=== PATIENT | female | born 1950 | race Caucasian/White ===

== ENCOUNTER 2016-05-28 23:55 | Emergency (ER) | payer MEDICARE, OTHER ==
--- NOTE | 2016-05-29 00:30 | ERPHSYRPT ---
- History of Present Illness Time Seen by Provider: 05/29/16 00:27 Source: patient Exam Limitations: no limitations Patient Subjective Stated Complaint: pt states she accidentally drank some oxyclean that was put in her water bottle. sttes she took one big drink and was able to spit some of it out Triage Nursing Assessment: pt alert and oriented, asnwers questions approp. pt ambulatory with steady gait noted. skin pink warm and dry. respirations nonlabored with lungs cta. pt denies burning in mouth or throat at this time. states she did have some immediately after drinking. Physician History: pt states she accidentally drank some oxyclean that was put in her water bottle. sttes she took one big drink and was able to spit some of it out. no symptoms Timing/Duration: today Associated Symptoms: denies symptoms Allergies/Adverse Reactions: hydroxyzine Allergy (Severe, Verified 05/29/16 00:25) Rash cefaclor [From Ceclor] Adverse Reaction (Intermediate, Verified 05/29/16 00:25) Vomiting hydrocodone bitartrate [From Lortab] Adverse Reaction (Intermediate, Verified 00:25) Vomiting ibuprofen [From Vicoprofen] Adverse Reaction (Intermediate, Verified 05/29/16 00 :25) Vomiting Home Medications: Calcium Carb/Vit D3/Minerals [Calcium 600+Minerals Tablet] 1 tab PO BID [History] Citalopram Hydrobromide 20 mg* [ceLEXa 20 MG] 1 tab PO DAILY 01/18/13 [ History] Insulin Pump Controller [Snap Insulin Pump Controller] 0 unit SQ UD 01/18/13 [ History] PANTOPRAZOLE 40 mg Tablet [Protonix 40MG Tablet] 1 tab PO DAILY 01/18/13 [ History] Simvastatin 10 mg [Zocor 10MG] 1 tab PO HS 01/18/13 [History] Carvedilol 3.125 mg [Coreg 3.125 MG] 3.125 mg PO BID 04/29/15 [History] Aspirin [[place] Aspirin] 81 mg PO DAILY 06/02/15 [History] Dextroamphetamine/Amphetamine [Adderall 20 mg Tablet] 20 mg PO DAILY 06/02/15 [ History] Lisinopril 5 mg [Zestril 5 MG] 5 mg PO DAILY 06/02/15 [History] Hx Tetanus, Diphtheria Vaccination/Date Given: Yes Hx Influenza Vaccination/Date Given: Yes Hx Pneumococcal Vaccination/Date Given: Yes Immunizations Up to Date: Yes - Review of Systems Constitutional: No Fever, No Chills Eyes: No Symptoms Ears, Nose, & Throat: No Symptoms Respiratory: No Cough, No Dyspnea Cardiac: No Chest Pain, No Edema, No Syncope Abdominal/Gastrointestinal: No Abdominal Pain, No Nausea, No Vomiting, No Diarrhea Genitourinary Symptoms: No Dysuria Musculoskeletal: No Back Pain, No Neck Pain Skin: No Rash Neurological: No Dizziness, No Focal Weakness, No Sensory Changes Psychological: No Symptoms Endocrine: No Symptoms All Other Systems: Reviewed and Negative - Past Medical History Pertinent Past Medical History: Yes Neurological History: No Pertinent History ENT History: Cataracts, Other Cardiac History: Congenital Heart Disease, Coronary Artery Disease, Hypertension , Myocardial Infarction ([place]) Respiratory History: Pneumonia Endocrine Medical History: Diabetes Type I Musculoskeletal History: Fractures, Osteoporosis GI Medical History: Diverticulosis, Esophageal Disorder, GERD, Hemorrhoids History: No Pertinent History Psycho-Social History: Depression Female Reproductive Disorders: Other Other Medical History: states "see Dr Roth once a year","they say I had a heart attack about 12 yrs ago"states "EKG might have showed something yrs ago" MRSA - Past Surgical History Past Surgical History: Yes Neuro Surgical History: No Pertinent History Cardiac: No Pertinent History Respiratory: No Pertinent History Gastrointestinal: No Pertinent History Genitourinary: No Pertinent History Musculoskeletal: Orthopedic Surgery Female Surgical History: Tubal Ligation, Other Other Surgical History: zena IOL with lens implant,,right hand surgery twice for trigger finger,Jan 2013 right hip and leg surgery-states caleb to femur. - Social History Smoking Status: Never smoker Exposure to second hand smoke: Yes Drug Use: none Patient Lives Alone: No - Female History Hx Last Menstrual Period: post Hx Now: No - Nursing Vital Signs Nursing Vital Signs: Initial Vital Signs Temperature 98.0 F Temperature Source Oral Pulse Rate 77 Respiratory Rate 18 Blood Pressure [Right Arm] 181/78 Pain Intensity 0 - Physical Exam General Appearance: no apparent distress, alert Eye Exam: PERRL/EOMI, eyes nml inspection Ears, Nose, Throat Exam: normal ENT inspection, TMs normal, pharynx normal, moist mucous membranes Neck Exam: normal inspection, non-tender, supple, full range of motion Respiratory Exam: normal breath sounds, lungs clear, No respiratory distress Cardiovascular Exam: regular rate/rhythm, normal heart sounds, normal peripheral pulses Gastrointestinal/Abdomen Exam: soft, normal bowel sounds, No tenderness, No mass Back Exam: normal inspection, normal range of motion, No CVA tenderness, No vertebral tenderness Extremity Exam: normal inspection, normal range of motion, pelvis stable Neurologic Exam: alert, oriented x 3, cooperative, normal mood/affect, nml cerebellar function, nml station & gait, sensation nml, No motor deficits Skin Exam: normal color, warm, dry, No rash Lymphatic Exam: No adenopathy SpO2: 97 Oxygen Delivery: Room Air - Course Nursing assessment & vital signs reviewed: Yes - Progress Progress: improved Progress Note: 05/29/16 00:27 Poison control contacted, they advised supportive treatment. they7 reported that oxyclean is 2 % hydrogen peroxide and only supportive treatment is needed. Counseled pt/family regarding: diagnosis, need for follow-up - Departure Time of Disposition: 00:29 Departure Disposition: Home Clinical Impression: Accidental ingestion of substance Qualifiers: Encounter type: initial encounter Injury intent: accidental or unintentional Qualified Code(s): T65.91XA - Toxic effect of unspecified substance, accidental (unintentional), initial encounter Condition: Stable Critical Care Time: No Referrals: SONAM WOLFE [Primary Care Provider] - Instructions: Accidental Ingestion -- Adult
[2016-05-29] MEDS ORDERED: ZOFRAN ODT 4 MG ONE (00:34)
[2016-05-29] MEDS: ZOFRAN ODT 4 MG PO ONE ×2 (00:34→00:35)
[2016-05-29 01:20] VITALS: BP 148/79; PULSE 75; O2SAT 98
== END 2016-05-29 01:19 | disposition home or self-care (01) ==
LOC: ED 23:55
DX: T65.891A Toxic effect of other specified substances, accidental (unintentional), initial encounter (principal)
CPT/HCPCS: 99283; Q0162

== ENCOUNTER 2016-08-06 00:12 | Emergency (ER) | payer MEDICARE, OTHER ==
[2016-08-06] MEDS ORDERED: Hydromorphone 1 mg/ml Ampule IV ONE (00:20)
[2016-08-06] MEDS ORDERED: Zofran 4 MG/2 ML VIAL IV ONE (00:20)
[2016-08-06] MEDS ORDERED: Zofran 4 MG/2 ML VIAL ONE (00:25)
[2016-08-06] MEDS ORDERED: Sodium Chloride 0.9% 1000 ML 1,000 ML ONE (00:25)
[2016-08-06] MEDS ORDERED: Hydromorphone 1 mg/ml Ampule ONE (00:25)
--- NOTE | 2016-08-06 00:26 | ERPHSYRPT ---
- History of Present Illness Time Seen by Provider: 08/06/16 00:15 Source: patient Physician History: PATIENT WITH HISTORY OF TYPE 2 DIABETES, AND HYPERTENSION FELL WHILE WALKING HER DOG COMPLAINS OF SEVERE RIGHT KNEE PAIN AND DEFORMITY. UNABLE TO BEAR WEIGHT ONTO RIGHT LOWER EXTREMITY. Method of Injury: direct blow, fell Occurred: just prior to arrival Quality: constant Severity of Pain-Max: severe Severity of Pain-Current: severe Lower Extremities Pain: knee: right Modifying Factors: Improves With: movement Associated Symptoms: unable to bear weight Allergies/Adverse Reactions: hydroxyzine Allergy (Severe, Verified 08/06/16 00:58) Rash cefaclor [From Ceclor] Adverse Reaction (Intermediate, Verified 08/06/16 00:58) Vomiting hydrocodone bitartrate [From Lortab] Adverse Reaction (Intermediate, Verified 00:58) Vomiting ibuprofen [From Vicoprofen] Adverse Reaction (Intermediate, Verified 08/06/16 00 :58) Vomiting Home Medications: Calcium Carb/Vit D3/Minerals [Calcium 600+Minerals Tablet] 1 tab PO BID [History] Citalopram Hydrobromide 20 mg* [ceLEXa 20 MG] 1 tab PO DAILY 01/18/13 [ History] Insulin Pump Controller [Snap Insulin Pump Controller] 0 unit SQ UD 01/18/13 [ History] PANTOPRAZOLE 40 mg Tablet [Protonix 40MG Tablet] 1 tab PO DAILY 01/18/13 [ History] Simvastatin 10 mg [Zocor 10MG] 1 tab PO HS 01/18/13 [History] Carvedilol 3.125 mg [Coreg 3.125 MG] 3.125 mg PO BID 04/29/15 [History] Aspirin [[place] Aspirin] 81 mg PO DAILY 06/02/15 [History] Dextroamphetamine/Amphetamine [Adderall 20 mg Tablet] 20 mg PO DAILY 06/02/15 [ History] Lisinopril 5 mg [Zestril 5 MG] 5 mg PO DAILY 06/02/15 [History] Hx Tetanus, Diphtheria Vaccination/Date Given: Yes Hx Influenza Vaccination/Date Given: Yes Hx Pneumococcal Vaccination/Date Given: Yes - Review of Systems Constitutional: No Symptoms Musculoskeletal: Deformity, Fall, Injury, Joint Pain, Joint Swelling - Past Medical History Pertinent Past Medical History: Yes Neurological History: No Pertinent History ENT History: Cataracts, Other Cardiac History: Congenital Heart Disease, Coronary Artery Disease, Hypertension , Myocardial Infarction ([place]) Respiratory History: Pneumonia Endocrine Medical History: Diabetes Type I Musculoskeletal History: Fractures, Osteoporosis GI Medical History: Diverticulosis, Esophageal Disorder, GERD, Hemorrhoids History: No Pertinent History Psycho-Social History: Depression Female Reproductive Disorders: Other Other Medical History: states "see Dr Roth once a year","they say I had a heart attack about 12 yrs ago"states "EKG might have showed something yrs ago" MRSA - Past Surgical History Past Surgical History: Yes Neuro Surgical History: No Pertinent History Cardiac: No Pertinent History Respiratory: No Pertinent History Gastrointestinal: No Pertinent History Genitourinary: No Pertinent History Musculoskeletal: Orthopedic Surgery Female Surgical History: Tubal Ligation, Other Other Surgical History: zena IOL with lens implant,,right hand surgery twice for trigger finger,Jan 2013 right hip and leg surgery-states erika to femur. - Social History Smoking Status: Never smoker Exposure to second hand smoke: Yes Drug Use: none Patient Lives Alone: No - Female History Hx Now: No - Nursing Vital Signs Nursing Vital Signs: Initial Vital Signs Temperature 97.3 F Temperature Source Oral Pulse Rate 63 Respiratory Rate 16 Blood Pressure [] 106/50 Pain Intensity 4 - Physical Exam General Appearance: moderate distress Eyes, Ears, Nose, Throat Exam: normal ENT inspection Neck Exam: normal inspection Cardiovascular/Respiratory Exam: chest non-tender, normal breath sounds Gastrointestinal/Abdominal Exam: non-tender Back Exam: normal inspection, normal range of motion Knees Exam: right knee: deformity, joint effusion, pain, soft tissue tenderness (MARKED SWELLLING DISTAL RIGHT THIGH PROXIMAL TO KNEE WITH MARKED TENDERNESS.), other (RIGHT PEDIS PULSE 2+) DTR - Lower Extremities Exam: knee (R): 2+, knee (L): 2+, ankle (R): 2+, ankle ( L): 2+ Mental Status Exam: alert, oriented x 3 Skin Exam: normal color, other (THERE IS SWELLING WITH TENDERNESS LEFT RING FINGER) SpO2 Interpretation: normal SpO2: 95 Oxygen Delivery: Room Air - Radiology Exams Right Femur X-ray Interpretation: Interpreted by me (THERE IS A COMMINUTED FRACTURE DISTAL FEMUR DISTAL TO INTRAMEDULLARY ERIKA) Right Knee X-ray Interpretation: Interpreted by me (COMMINUTED DISTAL RIGHT FEMUR FRACTURE) Hand X-ray Interpretation: Interpreted by me (COMMINUTED LEFT RIGHT FINGER PROXIMAL PHALANGX) Ordered Tests: Active Orders 24 hr Category Date Time Status [place] [Catheter-[place]ina] STAT Care 08/06/16 01:50 Ordered Oxygen-ED Only NASAL CANNULA 2 lpm Care 08/06/16 00:26 Active Splint STAT Care 08/06/16 01:19 Active Splint STAT Care 08/06/16 01:30 Active Splint STAT Care 08/06/16 01:31 Active FEMUR Stat Exams 08/06/16 00:22 Taken HAND (MINIMUM 3 VIEWS) Stat Exams 08/06/16 01:16 Taken KNEE (3 VIEWS) Stat Exams 08/06/16 00:21 Taken BMP Stat Lab 08/06/16 00:42 Completed CBC W DIFF Stat Lab 08/06/16 00:42 Completed PT INR [PROTIME WITH INR] Stat Lab 08/06/16 00:42 Completed Medication Summary Generic Name Dose Route Start Last Admin Trade Name Freq PRN Reason Stop Dose Admin Sodium Chloride 1,000 mls @ 100 mls/hr 08/06/16 00:30 08/06/16 00:29 Sodium Chloride 0.9% 1000 Ml IV 09/05/16 00:29 100 mls/hr .Q10H ALYSSA Administration Discontinued Medications Generic Name Dose Route Start Last Admin Trade Name Freq PRN Reason Stop Dose Admin Hydromorphone HCl 1 mg 08/06/16 00:20 08/06/16 00:29 Hydromorphone 1 Mg/Ml Ampule IV 08/06/16 00:21 1 mg STAT ONE Administration Hydromorphone HCl Confirm 08/06/16 00:25 Hydromorphone 1 Mg/Ml Ampule Administered 08/06/16 00:26 Dose 1 mg .ROUTE .STK-MED ONE Sodium Chloride Confirm 08/06/16 01:28 Sodium Chloride 0.9% 100 Ml Ivpb Administered 08/06/16 01:29 Dose 100 mls @ ud IV .STK-MED ONE Ondansetron HCl 4 mg 08/06/16 00:20 08/06/16 00:29 Zofran 4 Mg/2 Ml Vial IV 08/06/16 00:21 4 mg STAT ONE Administration Ondansetron HCl Confirm 08/06/16 00:25 Zofran 4 Mg/2 Ml Vial Administered 08/06/16 00:26 Dose 4 mg .ROUTE .STK-MED ONE Promethazine HCl 12.5 mg 08/06/16 01:24 08/06/16 01:33 Phenergan 25 Mg Inj IV 08/06/16 01:25 12.5 mg STAT ONE Administration Promethazine HCl Confirm 08/06/16 01:25 Phenergan 25 Mg Inj Administered 08/06/16 01:26 Dose 25 mg .ROUTE .STK-MED ONE Lab/Rad Data: Laboratory Result Diagrams 08/06/16 00:42 08/06/16 00:42 Laboratory Results 08/06/16 08/06/16 08/06/16 Range/Units 00:42 00:42 00:42 WBC 8.4 (4.0-10.5) K/mm3 RBC 3.66 L (4.1-5.4) M/mm3 Hgb 11.1 L (12.0-16.0) gm/dl Hct 34.5 L (35-47) % MCV 94.3 (78-100) fl MCH 30.3 (26-32) pg MCHC 32.2 (32-36) g/dl RDW 13.0 (11.5-14.0) % Plt Count 197 (150-450) K/mm3 MPV 11.4 H (6-9.5) fl Gran % 56.5 (36.0-66.0) % Lymphocytes % 30.5 (24.0-44.0) % Monocytes % 7.6 (0.0-12.0) % Eosinophils % 5.0 (0.00-5.0) % Basophils % 0.4 (0.0-0.4) % Basophils # 0.03 (0-0.4) INR 1.02 (0.8-3.0) Sodium 141 (136-145) mEq/L Potassium 3.6 (3.5-5.1) mEq/L Chloride 103 (98-107) mEq/L Carbon Dioxide 29.9 (21-32) mEq/L Anion Gap 11.9 (5-15) MEQ/L BUN 21 H (9-20) mg/dL Creatinine 0.77 (0.55-1.30) mg/dl Estimated GFR > 60 ML/MIN Glucose 164 H (70-110) MG/DL Calcium 9.1 (8.5-10.1) mg/dL - Progress Progress Note: 08/06/16 01:21 IV NORMAL SALINE AT 200ML/HR, ZOFRAN 4MG, DILAUDID 2MG IV, A LONG LEG ORTHOGLASS SPLINT APPLIED WITH PADDING. 08/06/16 01:32 AN UNLAR GUTTER SPLINT APPLIED TO LEFT HAND AND WRIST Discussed with Dr.: Thibodeaux (DISCUSSED WITH DR THIBODEAUX AT 0120 ACCEPTS ADMISSION TO [facility]IA [facility]) - Departure Time of Disposition: 02:10 Departure Disposition: Transfer Clinical Impression: COMMINUTED RIGHT DISTAL FEMUR FRACTURE, COMMINUTED FRACTURE LEFT RING FINGER Condition: Stable Critical Care Time: No Referrals: SONAM WOLFE [Primary Care Provider] -
[2016-08-06] MEDS ORDERED: Sodium Chloride 0.9% 1000 ML 1,000 ML IV SCH (00:30)
[2016-08-06 00:49] LABS: BASOPHIL % 0.4 % (0.0-0.4); Granulocytes % 56.5 % (36.0-66.0); Lymphocytes % 30.5 % (24.0-44.0); Mean Cell Volume 94.3 fl (78-100); Mean Corpuscular Hemoglobin 30.3 pg (26-32); Mean Platelet Volume 11.4 fl (6-9.5); Monocytes % 7.6 % (0.0-12.0); Platelet Count 197 K/mm3 (150-450); Red Blood Count 3.66 M/mm3 (4.1-5.4); White Blood Count 8.4 K/mm3 (4.0-10.5)
[2016-08-06 00:57] LABS: INR 1.02 (0.8-3.0); PROTIME 11.5 SECONDS (9.95-12.35)
[2016-08-06 01:00] LABS: ANION GAP 11.9 MEQ/L (5-15); BLOOD UREA NITROGEN 21 mg/dL (9-20); CHLORIDE 103 mEq/L (98-107); Carbon Dioxide 29.9 mEq/L (21-32); Glucose 164 MG/DL (70-110); Potassium 3.6 mEq/L (3.5-5.1); SODIUM 141 mEq/L (136-145)
[2016-08-06] MEDS ORDERED: Phenergan 25 MG INJ IV ONE (01:24)
[2016-08-06] MEDS ORDERED: Phenergan 25 MG INJ ONE (01:25)
[2016-08-06] MEDS ORDERED: Sodium Chloride 0.9% 100 ML IVPB 100 ML IV ONE (01:28)
[2016-08-06 02:01] VITALS: BP 106/50; PULSE 63
[2016-08-06 02:06] VITALS: O2SAT 95
--- NOTE | 2016-08-06 08:43 | XRAY ---
Indication: Pain following fall. Comparison: January 18, 2013. 2 views of the right femur demonstrates new mildly displaced comminuted fracture involving the distal shaft of the femur with soft tissue swelling. Elsewhere there is osteopenia, old proximal femur fracture with intact hardware, and scattered vascular calcifications.
--- NOTE | 2016-08-06 08:45 | XRAY ---
Indication: Pain following fall. Comparison: December 12, 2012. 3 views of the right knee demonstrates new displaced comminuted fracture involving the distal shaft of the femur with soft tissue swelling. Elsewhere there is osteopenia, partially visualized distal femur orthopedic hardware, and scattered vascular calcifications.
--- NOTE | 2016-08-06 08:47 | XRAY ---
Indication: Pain following fall. Comparison: None 3 views of the left hand demonstrates osteopenia and nondisplaced acute comminuted fracture involving the shaft of the fourth proximal phalanx. No other bony, articular, or soft tissue abnormalities.
== END 2016-08-06 02:15 | disposition short-term general hospital (02) ==
LOC: ED 00:12
PROC: 2W3LX1Z Immobilization of Right Lower Extremity using Splint (ICD-10-PCS; principal; 2016-08-06)
PROC: 2W3DX1Z Immobilization of Left Lower Arm using Splint (ICD-10-PCS; 2016-08-06)
DX: S72.401A Unspecified fracture of lower end of right femur, initial encounter for closed fracture (principal); S62.605A Fracture of unspecified phalanx of left ring finger, initial encounter for closed fracture; W19.XXXA Unspecified fall, initial encounter; Y93.K1 Activity, walking an animal
CPT/HCPCS: 29126; 29505; 36415; 51702; 73130; 73552; 73562; 80048; 82962; 85025; 85610; 96360; 96361; 96365; 96374; 96375; 99285; J1170; J2405; J2550

== ENCOUNTER 2018-08-01 22:29 | Emergency (ER) | payer MEDICARE, OTHER ==
--- NOTE | 2018-08-01 22:54 | ERPHSYRPT ---
- History of Present Illness Time Seen by Provider: 08/01/18 22:40 Source: patient, EMS Exam Limitations: no limitations Physician History: 67 y/o white female, being worked up for gallbladder issues including an ultrasound scheduled for tomorrow morning, presents with nausea and pain into her back on right side. was supposed to have gb removed in the past 2009 because of same sx but did not have surgery. pt ate taco salad twice today. of note, pt did have an eye surgery yesterday and was told to go to ED if she had nausea. pt denies cp, denies soa, and denies abd pain. Timing/Duration: today Severity: mild Modifying Factors: Improves With: eating Associated Symptoms: nausea, No vomiting, No abdominal pain, No shortness of breath, No cough, No chest pain Allergies/Adverse Reactions: hydroxyzine Allergy (Severe, Verified 08/06/16 00:58) Rash acetaminophen [From [place]] Adverse Reaction (Intermediate, Verified 08/01/18 23: 30) Vomiting cefaclor [From Ceclor] Adverse Reaction (Intermediate, Verified 08/06/16 00:58) Vomiting hydrocodone [From [place]] Adverse Reaction (Intermediate, Verified 08/01/18 23:30 ) Vomiting hydrocodone bitartrate [From Lortab] Adverse Reaction (Intermediate, Verified 00:58) Vomiting ibuprofen [From Vicoprofen] Adverse Reaction (Intermediate, Verified 08/06/16 00 :58) Vomiting Home Medications: Citalopram Hydrobromide 20 mg* [ceLEXa 20 MG] 1 tab PO DAILY 01/18/13 [ History] Insulin Pump Controller [Snap Insulin Pump Controller] 0 unit SQ UD 01/18/13 [ History] PANTOPRAZOLE 40 mg Tablet [Protonix 40MG Tablet] 1 tab PO DAILY 01/18/13 [ History] Simvastatin 10 mg [Zocor 10MG] 1 tab PO HS 01/18/13 [History] Aspirin [[place] Aspirin EC] 81 mg PO DAILY 06/02/15 [History] Calcium Carbonate [Calcium] 600 mg PO BID 08/01/18 [History] Docusate Sodium [Colace] 100 mg PO BID 08/01/18 [History] Raloxifene HCl [[place]] 60 mg PO DAILY 08/01/18 [History] Hx Tetanus, Diphtheria Vaccination/Date Given: Yes Hx Influenza Vaccination/Date Given: Yes Hx Pneumococcal Vaccination/Date Given: Yes - Review of Systems Constitutional: No Symptoms Eyes: No Symptoms Ears, Nose, & Throat: No Symptoms, No Throat Swelling, No Stridor Respiratory: No Symptoms, No Dyspnea, No Wheezing Cardiac: No Symptoms, No Chest Pain Abdominal/Gastrointestinal: Nausea Genitourinary Symptoms: No Symptoms Musculoskeletal: No Symptoms Skin: No Symptoms Neurological: No Symptoms Psychological: No Symptoms Endocrine: No Symptoms Hematologic/Lymphatic: No Symptoms Immunological/Allergic: No Symptoms All Other Systems: Reviewed and Negative - Past Medical History Pertinent Past Medical History: Yes Neurological History: No Pertinent History ENT History: Cataracts, Other Cardiac History: Congenital Heart Disease, Coronary Artery Disease, Hypertension , Myocardial Infarction ([place]) Respiratory History: Pneumonia Endocrine Medical History: Diabetes Type I Musculoskeletal History: Fractures, Osteoporosis GI Medical History: Diverticulosis, Esophageal Disorder, GERD, Hemorrhoids History: No Pertinent History Psycho-Social History: Depression Female Reproductive Disorders: Other Other Medical History: states "see Dr Roth once a year","they say I had a heart attack about 12 yrs ago"states "EKG might have showed something yrs ago" MRSA - Past Surgical History Past Surgical History: Yes Neuro Surgical History: No Pertinent History Cardiac: No Pertinent History Respiratory: No Pertinent History Gastrointestinal: No Pertinent History Genitourinary: No Pertinent History Musculoskeletal: Orthopedic Surgery Female Surgical History: Tubal Ligation, Other Other Surgical History: zena IOL with lens implant,,right hand surgery twice for trigger finger,Jan 2013 right hip and leg surgery-states caleb to femur. - Social History Smoking Status: Never smoker Exposure to second hand smoke: Yes Drug Use: none Patient Lives Alone: No - Nursing Vital Signs Nursing Vital Signs: Initial Vital Signs Temperature 99.5 F 08/01/18 22:35 Pulse Rate 93 H 08/01/18 22:35 Respiratory Rate 18 08/01/18 22:35 Blood Pressure 161/123 08/01/18 22:35 O2 Sat by Pulse Oximetry 96 08/01/18 22:35 Pain Scale Pain Intensity 0 - Physical Exam General Appearance: no apparent distress, alert Eye Exam: PERRL/EOMI, eyes nml inspection Ears, Nose, Throat Exam: normal ENT inspection, moist mucous membranes Neck Exam: normal inspection, non-tender, supple, full range of motion Respiratory Exam: normal breath sounds, lungs clear, airway intact, No chest tenderness, No respiratory distress Cardiovascular Exam: regular rate/rhythm, normal heart sounds, normal peripheral pulses Gastrointestinal/Abdomen Exam: soft, normal bowel sounds, No tenderness, No guarding, No rebound Pelvic Exam: not done Rectal Exam: not done Back Exam: normal inspection, normal range of motion, No CVA tenderness, No vertebral tenderness Extremity Exam: normal inspection, normal range of motion, No pelvis stable Neurologic Exam: alert, oriented x 3, cooperative, violin restorer II-XII nml as tested Skin Exam: normal color, warm, dry Lymphatic Exam: No adenopathy SpO2 Interpretation: normal SpO2: 96 O2 Delivery: Room Air Ordered Tests: Active Orders 24 hr Category Date Time Status AMYLASE Stat Lab 08/01/18 23:15 Completed CBC W DIFF Stat Lab 08/01/18 23:15 Completed CMP Stat Lab 08/01/18 23:15 Completed LIPASE Stat Lab 08/01/18 23:15 Completed UA W/RFX UR CULTURE Stat Lab 08/01/18 23:24 Completed Medication Summary Discontinued Medications Generic Name Dose Route Start Last Admin Trade Name Kobeq PRN Reason Stop Dose Admin Morphine Sulfate 2 mg 08/01/18 23:43 08/02/18 03:28 Morphine Sulfate 2 Mg Inj IM 08/01/18 23:44 2 mg STAT ONE Administration Morphine Sulfate Confirm 08/02/18 00:24 Morphine Sulfate 2 Mg Inj Administered 08/02/18 00:25 Dose 2 mg .ROUTE .STK-MED ONE Ondansetron HCl 4 mg 08/01/18 22:57 08/01/18 23:10 Zofran Odt 4 Mg PO 08/01/18 22:58 4 mg STAT ONE Administration Ondansetron HCl Confirm 08/01/18 23:10 Zofran Odt 4 Mg Administered 08/01/18 23:11 Dose 4 mg .ROUTE .STK-MED ONE Lab/Rad Data: Laboratory Result Diagrams 08/01/18 23:15 08/01/18 23:15 Laboratory Results 08/01/18 08/01/18 08/01/18 Range/Units 23:24 23:15 23:15 WBC 8.6 (4.0-10.5) K/mm3 RBC 3.67 L (4.1-5.4) M/mm3 Hgb 11.2 L (12.0-16.0) gm/dl Hct 35.2 (35-47) % MCV 95.9 (78-100) fl MCH 30.5 (26-32) pg MCHC 31.8 L (32-36) g/dl RDW 12.9 (11.5-14.0) % Plt Count 184 (150-450) K/mm3 MPV 12.1 H (6-9.5) fl Gran % 66.2 H (36.0-66.0) % Eos # (Auto) 0.43 (0-0.5) Absolute Lymphs (auto) 1.68 (1.0-4.6) Absolute Monos (auto) 0.77 (0.0-1.3) Lymphocytes % 19.6 L (24.0-44.0) % Monocytes % 9.0 (0.0-12.0) % Eosinophils % 5.0 (0.00-5.0) % Basophils % 0.2 (0.0-0.4) % Absolute Granulocytes 5.65 (1.4-6.9) Basophils # 0.02 (0-0.4) Sodium 137 (137-145) mmol/L Potassium 4.7 (3.5-5.1) mmol/L Chloride 99 (98-107) mmol/L Carbon Dioxide 32 H (22-30) mmol/L Anion Gap 11.1 (5-15) MEQ/L BUN 21 H (7-17) mg/dL Creatinine 0.76 (0.52-1.04) mg/dL Estimated GFR > 60.0 ML/MIN Glucose 183 H (74-106) mg/dL Calcium 9.8 (8.4-10.2) mg/dL Total Bilirubin 0.30 (0.2-1.3) mg/dL AST 22 (14-36) U/L ALT 10 (0-35) U/L Alkaline Phosphatase 91 (38-126) U/L Serum Total Protein 7.8 (6.3-8.2) g/dL Albumin 4.3 (3.5-5.0) g/dL Amylase 72 (30-110) U/L Lipase 89 (23-300) U/L Urine Color STRAW (YELLOW) Urine Appearance CLEAR (CLEAR) Urine pH 7.0 (5-6) Ur Specific [place] 1.010 (1.005-1.025) Urine Protein NEGATIVE (Negative) Urine Ketones NEGATIVE (NEGATIVE) Urine Blood NEGATIVE (0-5) Alexys/ul Urine Nitrite NEGATIVE (NEGATIVE) Urine Bilirubin NEGATIVE (NEGATIVE) Urine Urobilinogen NEGATIVE (0-1) mg/dL Ur Leukocyte Esterase NEGATIVE (NEGATIVE) Urine WBC (Auto) NONE (0-5) /HPF Urine RBC (Auto) NONE (0-2) /HPF U Epithel Cells (Auto) NONE (FEW) /HPF Urine Bacteria (Auto) NONE (NEGATIVE) /HPF Urine Mucus (Auto) SLIGHT (NEGATIVE) /HPF Urine Culture Reflexed NO (NO) Urine Glucose NEGATIVE (NEGATIVE) mg/dL - Progress Progress: improved Progress Note: 08/02/18 06:47 computers went down at 0200. pts sx improved. pt was discharged to home. this is a delayed entry Counseled pt/family regarding: lab results, diagnosis, need for follow-up - Departure Departure Disposition: Home Clinical Impression: Nausea, Right flank pain Condition: Good Critical Care Time: No Referrals: SONAM WOLFE [Primary Care Provider] - Instructions: Nausea and Vomiting, Adult Additional Instructions: avoid fatty, greasy and spicy foods
[2018-08-01] MEDS ORDERED: ZOFRAN ODT 4 MG ONE (23:10)
[2018-08-01] MEDS: ZOFRAN ODT 4 MG PO ONE (23:10)
[2018-08-01 23:25] LABS: BASOPHIL % 0.2 % (0.0-0.4); Basophil (Absolute #) 0.02 (0-0.4); Eosinophil (Absolute #) 0.43 (0-0.5); Granulocyte Absolute (ANC) 5.65 (1.4-6.9); Granulocytes % 66.2 % (36.0-66.0); Hematocrit 35.2 % (35-47); Hemoglobin 11.2 gm/dl (12.0-16.0); Lymphocyte (Absolute #) 1.68 (1.0-4.6); Lymphocytes % 19.6 % (24.0-44.0); Mean Cell Volume 95.9 fl (78-100); Mean Corpuscular Hemoglobin 30.5 pg (26-32); Mean Corpuscular Hgb Concent. 31.8 g/dl (32-36); Mean Platelet Volume 12.1 fl (6-9.5); Monocyte (Absolute #) 0.77 (0.0-1.3); Platelet Count 184 K/mm3 (150-450); Red Blood Count 3.67 M/mm3 (4.1-5.4); Red Cell Distribution Width 12.9 % (11.5-14.0); White Blood Count 8.6 K/mm3 (4.0-10.5)
[2018-08-01 23:27] LABS: Appearance CLEAR (CLEAR); Bilirubin NEGATIVE (NEGATIVE); Blood NEGATIVE Ery/ul (0-5); Glucose NEGATIVE (NEGATIVE); Ketones NEGATIVE (NEGATIVE); Leukocyte Esterase NEGATIVE (NEGATIVE); Mucus SLIGHT /HPF (NEGATIVE); Nitrite NEGATIVE (NEGATIVE); Protein,Urine Dip NEGATIVE (Negative); Urobilinogen NEGATIVE mg/dL (0-1)
[2018-08-02 00:09] LABS: ALBUMIN 4.3 g/dL (3.5-5.0); ALKALINE PHOSPHATASE 91 U/L (38-126); AMYLASE 72 U/L (30-110); ANION GAP 11.1 MEQ/L (5-15); BLOOD UREA NITROGEN 21 mg/dL (7-17); CHLORIDE 99 mmol/L (98-107); Calcium 9.8 mg/dL (8.4-10.2); Carbon Dioxide 32 mmol/L (22-30); Creatinine 1 0.76 mg/dL (0.52-1.04); Glucose 183 mg/dL (74-106); Potassium 4.7 mmol/L (3.5-5.1); SGOT/AST 22 U/L (14-36); SGPT/ALT 10 U/L (0-35); SODIUM 137 mmol/L (137-145); Total Protein 7.8 g/dL (6.3-8.2)
[2018-08-02] MEDS ORDERED: MORPHINE SULFATE 2 MG INJ ONE (00:24)
[2018-08-02] MEDS: MORPHINE SULFATE 2 MG INJ IM ONE (03:28)
[2018-08-02 03:31] VITALS: BP 128/58; PULSE 82
[2018-08-02 06:49] VITALS: O2SAT 96
== END 2018-08-02 01:45 | disposition home or self-care (01) ==
LOC: ED 22:29
DX: R11.0 Nausea (principal); R10.9 Unspecified abdominal pain; Z79.899 Other long term (current) drug therapy; I10 Essential (primary) hypertension; I25.2 Old myocardial infarction; E10.9 Type 1 diabetes mellitus without complications
CPT/HCPCS: 36415; 80053; 81001; 82150; 83690; 85025; 96372; 99284; J2270; Q0162

== ENCOUNTER 2018-10-14 11:33 | Emergency (ER) | payer MEDICARE, OTHER ==
--- NOTE | 2018-10-14 12:18 | ERPHSYRPT ---
- History of Present Illness Time Seen by Provider: 10/14/18 12:15 Source: patient Exam Limitations: no limitations Physician History: Patient is 68-year-old female recently ate at [employer] in [facility] where there is a possible outbreak of hepatitis A reported. Patient denies any symptoms except for mild sore throat. But due to media coverage. Patient wants to be checked out for hepatitis. Associated Symptoms: denies symptoms Allergies/Adverse Reactions: hydroxyzine Allergy (Severe, Verified 08/06/16 00:58) Rash acetaminophen [From [place]] Adverse Reaction (Intermediate, Verified 08/01/18 23: 30) Vomiting cefaclor [From Ceclor] Adverse Reaction (Intermediate, Verified 08/06/16 00:58) Vomiting hydrocodone [From [place]] Adverse Reaction (Intermediate, Verified 08/01/18 23:30 ) Vomiting hydrocodone bitartrate [From Lortab] Adverse Reaction (Intermediate, Verified 00:58) Vomiting ibuprofen [From Vicoprofen] Adverse Reaction (Intermediate, Verified 08/06/16 00 :58) Vomiting Home Medications: Citalopram Hydrobromide 20 mg* [ceLEXa 20 MG] 1 tab PO DAILY 01/18/13 [ History] Insulin Pump Controller [Snap Insulin Pump Controller] 0 unit SQ UD 01/18/13 [ History] PANTOPRAZOLE 40 mg Tablet [Protonix 40MG Tablet] 1 tab PO DAILY 01/18/13 [ History] Simvastatin 10 mg [Zocor 10MG] 1 tab PO HS 01/18/13 [History] Aspirin [Giles Aspirin EC] 81 mg PO DAILY 06/02/15 [History] Calcium Carbonate [Calcium] 600 mg PO BID 08/01/18 [History] Docusate Sodium [Colace] 100 mg PO BID 08/01/18 [History] Raloxifene HCl [Evista] 60 mg PO DAILY 08/01/18 [History] Hx Tetanus, Diphtheria Vaccination/Date Given: Yes Hx Influenza Vaccination/Date Given: Yes Hx Pneumococcal Vaccination/Date Given: Yes - Review of Systems Constitutional: No Fever, No Chills Eyes: No Symptoms Ears, Nose, & Throat: Throat Pain Respiratory: No Cough, No Dyspnea Cardiac: No Chest Pain, No Edema, No Syncope Abdominal/Gastrointestinal: No Abdominal Pain, No Nausea, No Vomiting, No Diarrhea Genitourinary Symptoms: No Dysuria Musculoskeletal: No Back Pain, No Neck Pain Skin: No Rash Neurological: No Dizziness, No Focal Weakness, No Sensory Changes Psychological: No Symptoms Endocrine: No Symptoms All Other Systems: Reviewed and Negative - Past Medical History Pertinent Past Medical History: Yes Neurological History: No Pertinent History ENT History: Cataracts, Other Cardiac History: Congenital Heart Disease, Coronary Artery Disease, Hypertension , Myocardial Infarction ([place]) Respiratory History: Pneumonia Endocrine Medical History: Diabetes Type I Musculoskeletal History: Fractures, Osteoporosis GI Medical History: Diverticulosis, Esophageal Disorder, GERD, Hemorrhoids History: No Pertinent History Psycho-Social History: Depression Female Reproductive Disorders: Other Other Medical History: states "see Dr Roth once a year","they say I had a heart attack about 12 yrs ago"states "EKG might have showed something yrs ago" MRSA - Past Surgical History Past Surgical History: Yes Neuro Surgical History: No Pertinent History Cardiac: No Pertinent History Respiratory: No Pertinent History Gastrointestinal: No Pertinent History Genitourinary: No Pertinent History Musculoskeletal: Orthopedic Surgery Female Surgical History: Tubal Ligation, Other Other Surgical History: zena IOL with lens implant,,right hand surgery twice for trigger finger,Jan 2013 right hip and leg surgery-states caleb to femur. - Social History Smoking Status: Never smoker Exposure to second hand smoke: Yes Drug Use: none Patient Lives Alone: No - Physical Exam General Appearance: no apparent distress, alert Eye Exam: PERRL/EOMI, eyes nml inspection Ears, Nose, Throat Exam: normal ENT inspection, TMs normal, pharynx normal, moist mucous membranes Neck Exam: normal inspection, non-tender, supple, full range of motion Respiratory Exam: normal breath sounds, lungs clear, No respiratory distress Cardiovascular Exam: regular rate/rhythm, normal heart sounds, normal peripheral pulses Gastrointestinal/Abdomen Exam: soft, normal bowel sounds, No tenderness, No mass Back Exam: normal inspection, normal range of motion, No CVA tenderness, No vertebral tenderness Extremity Exam: normal inspection, normal range of motion, pelvis stable Neurologic Exam: alert, oriented x 3, cooperative, normal mood/affect, nml cerebellar function, nml station & gait, sensation nml, No motor deficits Skin Exam: normal color, warm, dry, No rash Lymphatic Exam: No adenopathy - Course Nursing assessment & vital signs reviewed: Yes Ordered Tests: Active Orders 24 hr Category Date Time Status CBC W DIFF Stat Lab 10/14/18 12:05 Received CMP Stat Lab 10/14/18 12:05 Received - Progress Progress: unchanged Counseled pt/family regarding: diagnosis, need for follow-up - Departure Departure Disposition: Home Clinical Impression: Exposure to hepatitis A Condition: Stable Critical Care Time: No Referrals: SONAM WOLFE [Primary Care Provider] - Additional Instructions: Discharge/Care Plan FARASHEREE PADILLA was seen on 10/14/18 in the Emergency Room. The patient was counseled regarding Diagnosis,Lab results, Imaging studies, need for follow up and when to return to the Emergency Room. Prescriptions given: Discharge Note I have spoken with the patient and/or caregivers. I have explained the patient' s condition, diagnosis and treatment plan based on the information available to me at this time. I have answered the patient's and/or caregiver's questions and addressed any concerns. The patient and/or caregivers have as good understanding of the patient's diagnosis, condition and treatment plan as can be expected at this point. The vital signs have been stable. The patient's condition is stable and appropriate for discharge from the emergency department. The patient will pursue further outpatient evaluation with the primary care physician or other designated or consulting physician as outlined in the discharge instructions. The patient and/or caregivers are agreeable to this plan of care and follow-up instructions have been explained in detail. The patient and/or caregivers have received these instruction. The patient/and or caregivers are aware that any significant change in condition or worsening of symptoms should prompt an immediate return to this or the closest emergency department or call 911. Please take Claritin 10 mg daily for 5 days for your allergic sore throat.
[2018-10-14 12:19] VITALS: PULSE 80
[2018-10-14 12:19] LABS: BASOPHIL % 0.2 % (0.0-0.4); Basophil (Absolute #) 0.02 (0-0.4); Eosinophil % 3.9 % (0.00-5.0); Eosinophil (Absolute #) 0.32 (0-0.5); Granulocyte Absolute (ANC) 5.49 (1.4-6.9); Granulocytes % 67.6 % (36.0-66.0); Hematocrit 37.6 % (35-47); Hemoglobin 11.8 gm/dl (12.0-16.0); Lymphocyte (Absolute #) 1.79 (1.0-4.6); Mean Cell Volume 96.7 fl (78-100); Mean Corpuscular Hemoglobin 30.3 pg (26-32); Mean Corpuscular Hgb Concent. 31.4 g/dl (32-36); Mean Platelet Volume 11.7 fl (6-9.5); Monocyte (Absolute #) 0.51 (0.0-1.3); Monocytes % 6.3 % (0.0-12.0); Platelet Count 195 K/mm3 (150-450); Red Blood Count 3.89 M/mm3 (4.1-5.4); Red Cell Distribution Width 13.4 % (11.5-14.0); White Blood Count 8.1 K/mm3 (4.0-10.5)
[2018-10-14 12:31] LABS: ALBUMIN 4.4 g/dL (3.5-5.0); ALKALINE PHOSPHATASE 84 U/L (38-126); ANION GAP 12.5 MEQ/L (5-15); BLOOD UREA NITROGEN 16 mg/dL (7-17); CHLORIDE 101 mmol/L (98-107); Calcium 9.9 mg/dL (8.4-10.2); Carbon Dioxide 32 mmol/L (22-30); Creatinine 1 0.58 mg/dL (0.52-1.04); Glucose 161 mg/dL (74-106); Potassium 4.3 mmol/L (3.5-5.1); SGOT/AST 23 U/L (14-36); SGPT/ALT 12 U/L (0-35); SODIUM 141 mmol/L (137-145)
[2018-10-14 12:44] VITALS: BP 122/72; O2SAT 96
[2018-10-16 06:44] LABS: HEPATITIS A IGM Non Reactive (Non Reactive); HEPATITIS B VIRUS CORE TOT AB Reactive (Non Reactive); HEPATITIS C VIRUS ANTIBODY Non Reactive (Non Reactive); Hepatitis B Surface Antigen Non Reactive (Non Reactive)
== END 2018-10-14 12:43 | disposition home or self-care (01) ==
LOC: ED 11:33
DX: Z20.5 Contact with and (suspected) exposure to viral hepatitis (principal)
CPT/HCPCS: 36415; 80053; 80074; 85025; 99283